=== PATIENT | male | born 1965 | race Caucasian/White ===

== ENCOUNTER 2017-09-03 14:01 | Emergency (ER) | payer MEDICAID, SELFPAY ==
[2017-09-03 14:02] VITALS: BP 152/110; PULSE 86; RESP 16; TEMP 36.6; O2SAT 100; BMI 21.7
--- NOTE | 2017-09-03 14:27 | CT_ITS ---
STUDY: CT CERVICAL SPINE WITHOUT CONTRAST REASON FOR EXAM: Male, 52 years old. Left arm pain. Recent fall. Prior fusion of the lower cervical spine. RADIATION DOSAGE (If Supplied By Facility): CTDIvol = ( 22.40 ) mGy, DLP = ( 541.15 ) mGycm TECHNIQUE: High resolution transaxial imaging was performed without contrast material. Sagittal and coronal images were reconstructed. Individualized dose optimization techniques were used for this CT. COMPARISON: Comparison is made with prior examination dated February 11, 2015. FINDINGS: Normal craniovertebral junction. Normal anterior atlantoaxial articulation. Normal odontoid process. There is straightening of the normal cervical lordosis. Normal vertebral bodies and posterior osseous elements. C2-3: Normal endplates. Normal disc height and morphology. Normal central canal and intervertebral neuroforamina. C3-4: Normal endplates. Normal disc height and morphology. Normal central canal and intervertebral neuroforamina. C4-5: Mild degree of disc space narrowing. Mild degree of central posterior spondylosis causing minimal deformity of the central portion of the thecal sac. C5-6: Status post anterior fusion at the C5-C6 level with screw and plate fixation device. Prosthetic disc is present. C6-7: Status post anterior fusion with screw and plate fixation. Prosthetic disc is seen. C7-T1: Normal endplates. Normal disc height and morphology. Normal central canal and intervertebral neuroforamina. Normal visualized soft tissue structures. CT/Spine Cervical without Contras IMPRESSION: Status post anterior fusion at the C5-C6 and C6-C7 levels. Straightening of the normal cervical lordosis. There has been no change since prior study. Electronically Signed: Pollo Kulkarni MD at 15:16 EST Tel [phone], Service support ,
--- NOTE | 2017-09-03 14:29 | ED.VISSUMM ---
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 Since his injury and neck fusion, he has had chronic neck pain, but never had the left upper extremity discomfort like this. He did not come to the ER for evaluation, but did follow up with his PCP within the last couple weeks, had some C-spine x-rays that showed stable fusion hardware and nothing else. He states his symptoms have continued to worsen over the last 2-3 weeks. Physical Examination: Vital signs are unremarkable, he is holding his head in the hyperflexed position, as he states it is more comfortable. He is able to extend somewhat. He has limited range of motion, turning bilaterally to the 45? altaf is not uncomfortable, but he does so slowly. There is no cervical spine or paraspinal neck tenderness, but he does have mild tenderness in the T1-T2 midline area. There is no step-off or signs of injury there. The rest of the spine is nontender. 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 He has decreased sensation partially throughout the hand but worse in the fingertips, involving all of them. He has a strong radial pulse. He is ambulatory without difficulty, his right upper extremity is normal neurologically and vascularly. HEENT exam is normal otherwise. Test Results: CT cervical spine obtained and shows no acute fractures or hardware abnormality or change compared with prior. Emergency Department Course and Treatment: Reassured that no occult fracture exists. Negative CT of the cervical spine does not rule out the possibility of a acute or subacute disc problem. If that is the case, given the pattern of his discomfort in his left upper extremity, it would have to involve more than one nerve root. He was given an oxycodone which helped his pain. I will give him a short prescription and advised that he follow-up with his PCP. No indication for emergent MRI at this time, which is not available today anyway since the machine is booked. Treatment Plan: As above Disposition: Discharge home Impression: Acute on chronic neck pain Cervical radiculopathy This note was generated with [employer] dictation software. It may contain incorrect words, spelling, and punctuation that were not noted in review of the chart prior to signing ED Disposition - Plan for ED Patient: Disposition: Home or Assisted Living Chief Complaint: Other, Pain/Inj Instructions: ED Cervical Radiculopathy Prescriptions: Oxycodone HCl/Acetaminophen [Percocet 5/325] 1 tab PO Q6H PRN PRN 3 Days #12 tab PRN Reason: Pain Referrals: Daniel Watkins III, MD [Primary Care Provider] - 1 Week
--- NOTE | 2017-09-03 14:32 | ED.DCSUM_ITS ---
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 Since his injury and neck fusion, he has had chronic neck pain, but never had the left upper extremity discomfort like this. He did not come to the ER for evaluation, but did follow up with his PCP within the last couple weeks, had some C-spine x-rays that showed stable fusion hardware and nothing else. He states his symptoms have continued to worsen over the last 2-3 weeks. Physical Examination: Vital signs are unremarkable, he is holding his head in the hyperflexed position, as he states it is more comfortable. He is able to extend somewhat. He has limited range of motion, turning bilaterally to the 45 ? altaf is not uncomfortable, but he does so slowly. There is no cervical spine or paraspinal neck tenderness, but he does have mild tenderness in the T1-T2 midline area. There is no step-off or signs of injury there. The rest of the spine is nontender. 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 He has decreased sensation partially throughout the hand but worse in the fingertips, involving all of them. He has a strong radial pulse. He is ambulatory without difficulty, his right upper extremity is normal neurologically and vascularly. HEENT exam is normal otherwise. Test Results: CT cervical spine obtained and shows no acute fractures or hardware abnormality or change compared with prior. Emergency Department Course and Treatment: Reassured that no occult fracture exists. Negative CT of the cervical spine does not rule out the possibility of a acute or subacute disc problem. If that is the case, given the pattern of his discomfort in his left upper extremity, it would have to involve more than one nerve root. He was given an oxycodone which helped his pain. I will give him a short prescription and advised that he follow-up with his PCP. No indication for emergent MRI at this time, which is not available today anyway since the machine is booked. Treatment Plan: As above Disposition: Discharge home Impression: Acute on chronic neck pain Cervical radiculopathy This note was generated with [employer] dictation software. It may contain incorrect words, spelling, and punctuation that were not noted in review of the chart prior to signing ED Disposition - Plan for ED Patient: Disposition: Home or Assisted Living Chief Complaint: Other, Pain/Inj Instructions: ED Cervical Radiculopathy Prescriptions: Oxycodone HCl/Acetaminophen [Percocet 5/325] 1 tab PO Q6H PRN PRN 3 Days #12 tab PRN Reason: Pain Referrals: Daniel Watkins III, MD [Primary Care Provider] - 1 Week
[2017-09-03] MEDS: oxyCODONE 5 MG Tablet PO (14:34)
[2017-09-03 14:38] VITALS: BP 148/98; PULSE 98; RESP 14; O2SAT 99
[2017-09-03 16:13] VITALS: BP 140/85; PULSE 90; RESP 14; O2SAT 99
== END 2017-09-03 16:13 | disposition home or self-care (01) ==
PROVIDERS: Emergency Provider Emergency Medicine; Family Provider Family Medicine; PCP Family Medicine
DX: M54.12 Radiculopathy, cervical region (principal); M54.2 Cervicalgia; Z72.0 Tobacco use; Z98.1 Arthrodesis status
CPT/HCPCS: 72125; 99283

== ENCOUNTER 2017-09-12 23:35 | Emergency (ER) | payer MEDICAID, SELFPAY ==
[2017-09-12 23:36] VITALS: BP 142/88; PULSE 84; RESP 16; TEMP 37.1; O2SAT 97; BMI 21.4
--- NOTE | 2017-09-13 00:13 | ED.VISSUMM ---
- ER Visit Summary Date of Service: 09/13/17 Chief Complaint: Acute on chronic neck pain History of Present Illness: The patient is a 52 M status post C5C6-7 cervical fusion from trauma in the past. States that he coughed 2 weeks ago has had increasing pain. At times radiates to his left arm. Denies any weakness. No bowel or bladder incontinence. No falls or a month. Denies any fever. She was seen in the ER within the last [address] of his C-spine which showed chronic changes but no acute process. Currently is on [place] for pain. Physical Examination: Middle-aged man lying with his head down on the bed. Complaining of pain. Vital signs are stable afebrile. HEENT exam unremarkable. He has a hard c-collar on. Trachea is midline. He is a well-healed old anterior fusion cervical scar. There is no lymphadenopathy. No meningismus. He does not want to move his neck due to discomfort. There is no redness or warmth. Lungs clear to auscultation bilaterally. Heart regular rate and rhythm no murmur. Abdomen is soft and nontender. Neurologically is awake and alert moving all 4 extremities. 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 He is strong radial pulse. His other extremities are neurovascularly intact. Test Results: None I did review the CT from a week ago. Emergency Department Course and Treatment: Treated with IM Dilaudid here and p.o. Motrin. Discharged home to use his [place]. Treatment Plan: Follow up with his primary care physician for further evaluation. Disposition: Discharge Impression: Acute on chronic neck pain with left arm radiculopathy by history. History of a C6W1-T6 cervical fusion This note was generated with [employer] software. It may contain incorrect words, spelling, and punctuation that were not noted in review of the chart prior to signing ED Disposition - Plan for ED Patient: Chief Complaint: Back Referrals: Daniel Watkins III, MD [Primary Care Provider] -
--- NOTE | 2017-09-13 00:16 | ED.DCSUM_ITS ---
- ER Visit Summary Date of Service: 09/13/17 Chief Complaint: Acute on chronic neck pain History of Present Illness: The patient is a 52 M status post C5C6-7 cervical fusion from trauma in the past. States that he coughed 2 weeks ago has had increasing pain. At times radiates to his left arm. Denies any weakness. No bowel or bladder incontinence. No falls or a month. Denies any fever. She was seen in the ER within the last [address] of his C-spine which showed chronic changes but no acute process. Currently is on [place] for pain. Physical Examination: Middle-aged man lying with his head down on the bed. Complaining of pain. Vital signs are stable afebrile. HEENT exam unremarkable. He has a hard c-collar on. Trachea is midline. He is a well- healed old anterior fusion cervical scar. There is no lymphadenopathy. No meningismus. He does not want to move his neck due to discomfort. There is no redness or warmth. Lungs clear to auscultation bilaterally. Heart regular rate and rhythm no murmur. Abdomen is soft and nontender. Neurologically is awake and alert moving all 4 extremities. 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 He is strong radial pulse. His other extremities are neurovascularly intact. Test Results: None I did review the CT from a week ago. Emergency Department Course and Treatment: Treated with IM Dilaudid here and p.o. Motrin. Discharged home to use his [place]. Treatment Plan: Follow up with his primary care physician for further evaluation. Disposition: Discharge Impression: Acute on chronic neck pain with left arm radiculopathy by history. History of a [id number] cervical fusion This note was generated with [employer] software. It may contain incorrect words, spelling, and punctuation that were not noted in review of the chart prior to signing ED Disposition - Plan for ED Patient: Chief Complaint: Back Referrals: Daniel Watkins III, MD [Primary Care Provider] -
--- NOTE | 2017-09-13 00:17 | DCINST.ED_ITS ---
ED Disposition - Plan for ED Patient: Disposition: Home or Assisted Living Chief Complaint: Back Instructions: ED Neck Back Pain General Referrals: Daniel Watkins III, MD [Primary Care Provider] - As soon as possible Additional Instructions: Follow up with Dr. Watkins. You may need further imaging such as an MRI if this does not improve. [place] and her home [place] for pain.
[2017-09-13] MEDS: HYDROmorphone 1 MG/ML Syringe IM (00:20)
[2017-09-13] MEDS: Ibuprofen 400 MG Tablet 800 MG PO (00:20)
[2017-09-13 00:22] VITALS: RESP 18
--- NOTE | 2017-09-13 00:42 | NURSING ---
EXPLAINED TO THE PT THAT WE DO NOT DO MRIS IN THE ER, THEY HAVE TO BE PREAPPROVED. LET THEM KNOW THAT THEY NEED TO TALK WITH THEIR PCP ABOUT SETTING THAT UP AND MAKING AN ARTI IN THE MORNING. WENT TO D/C AND PAIN IN NO BETTER LET THE DOCTOR KNOW.
[2017-09-13 00:48] VITALS: RESP 16
== END 2017-09-13 00:48 | disposition home or self-care (01) ==
LOC: ED 09-13 00:26
PROVIDERS: Emergency Provider Emergency Medicine; Family Provider Family Medicine; PCP Family Medicine
DX: M54.2 Cervicalgia (principal); G89.29 Other chronic pain; M54.10 Radiculopathy, site unspecified; Z98.1 Arthrodesis status; Z72.0 Tobacco use
CPT/HCPCS: 96372; 99281

== ENCOUNTER → 2018-03-22 15:39 | Outpatient (CLI) | payer MEDICARE, MEDICAID, SELFPAY ==
--- NOTE | 2018-03-22 16:04 | VDLE_ITS ---
Reason For Study: PAIN AND SWELLING RIGHT LEFT GSV is normal. CFV is compressible, spontaneous, phasic, CFV is compressible, spontaneous, phasic, competent, and demonstrates normal competent and demonstrates normal augmentation. augmentation. FV is compressible, spontaneous, phasic, competent and demonstrates normal augmentation. POP V is compressible, spontaneous, phasic, competent and demonstrates normal augmentation. T/P Trunk is compressible. PTV is compressible. RT PerV is compressible. Procedure Exam performed in department. The exam was diagnostic. A preliminary report was called and/or faxed to [facility]. Interpretation Summary Deep veins of the right lower extremity are patent and compressible segmentally. There is no evidence of right lower extremity deep vein thrombosis. Valvular competence appears intact within the proximal deep venous system on the right . The right greater saphenous vein appears patent and compressible segmentally. Ordering Physician: Shante Perdomo Performed By: Isaak Sr RVT
== END ==
PROVIDERS: Family Provider Family Medicine; PCP Family Medicine; Visit Provider Nurse Practitioner Family
DX: M79.604 Pain in right leg (principal); M79.89 Other specified soft tissue disorders
CPT/HCPCS: 93971

== ENCOUNTER 2020-03-03 14:55 | Emergency (ER) | payer MEDICARE, SELFPAY ==
[2020-03-03 14:57] VITALS: BP 142/74; PULSE 70; RESP 18; TEMP 36.4; O2SAT 99; BMI 20.7
[2020-03-03 16:01] VITALS: BP 132/94; PULSE 65; RESP 18; O2SAT 98
--- NOTE | 2020-03-03 16:21 | RAD_ITS ---
STUDY: X-RAY CHEST REASON FOR EXAM: Male, 54 years old. has been having fatigue, sore throat, cough and headaches. was then exposed to a person with COVID on wednesday. TECHNIQUE: Frontal view of the chest COMPARISON: February 11 2015 FINDINGS: . Scattered calcified granulomata. There are minimal ill-defined scattered pulmonary opacities with predominantly bronchovascular appearance. There is no pneumothorax, pulmonary edema, cardiac megaly or pleural effusions. There is cervical ACDF with remainder of the osseous structures normal. RAD/Chest 1 View (Portable) IMPRESSION: Questionable interstitial markings/opacities. Refer to CT for definitive assessment. Electronically Signed: Poncho Estrada, at 17:03 EDT Tel , Service support ,
--- NOTE | 2020-03-03 16:22 | ED.DCSUM_ITS ---
History of Present Illness Chief Complaint: Fatigue Informant: Patient Onset: Days Context: Gradual Onset Timing: Continuous Associated Symptoms: Chills, Cough, Ear pain, Rhinorrhea, Sore throat. Negative for: Fever Chest Pain: None Narrative: Is a 54-year-old male with history of emphysema, heart issues, hyperlipidemia and tobacco use presenting for flulike symptoms. Patient states he was exposed to someone with coronavirus 5 days ago. He started having symptoms 3 days ago. He has runny nose, nasal congestion, ear fullness, sore throat and cough. He also has chills and body aches. Patient denies any fever. 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 He also states he is concerned because he has an immunosuppressed daughter with Crohn's disease at home. She is currently asymptomatic. Patient states he has some very mild shortness of breath but denies any chest pain. He denies any wheezing difficulty breathing. He states is more of an irritation from his throat. He has had a cough is been productive of some red sputum. No other complaints at this time. Is not previously been tested for coronavirus. Past Medical History - Allergies and Home Meds Allergies/Adverse Reactions: Allergies sulfamethoxazole [From Bactrim] Allergy (Verified 03/03/20 14:57) Rash trimethoprim [From Bactrim] Allergy (Verified 03/03/20 14:57) Rash Primary Care Physician: Daniel Watkins III, MD [Primary Care Provider] - Past Medical History: - - Emphysema,'s hypertension, hyperlipidemia, heart issues Lives: With Family Smoking Status: Current every day smoker Review of Systems General: Reports: Chills, Malaise. Denies: Fever, Sweats Eyes: Denies: Visual changes - bilaterally ENT: Reports: Bilateral ear pain, Rhinorrhea, Sore throat Cardiovascular: Denies: Chest pain, Palpitations Respiratory: Reports: Cough, Sputum. Denies: Dyspnea, Dyspnea on exertion Gastrointestinal: Denies: Abdominal pain, Nausea, Vomiting, Diarrhea, Melena, Hematochezia Genitourinary: Denies: Dysuria, Hematuria, Frequency Musculoskeletal: Reports: Myalgias. Denies: Arthralgias, Neck pain Skin: Denies: Rash Neurological: Denies: Headache, Weakness, Numbness Physical Exam Vital Signs/Narrative: Vital Signs Temp Pulse Resp BP Pulse Ox 03/03/20 14:57 97.6 F L 70 18 142/74 H 99 Inital Vital Signs reviewed: Yes General: Well nourished, Well developed Head: Normocephalic, Atraumatic Eyes: Perrl, EOMI ENT: Rhinorrhea, - - Tympanic membranes are clear bilaterally however there is air-fluid levels bilaterally and retractions on the left. Negative for: Purulent Discharge, Sinus tenderness Neck: Supple, Nontender Cardiovascular: Regular rate, Regular rhythm, No murmurs Respiratory: No distress, No Stridor, Rhonchi. Negative for: Wheezing, Diminished, Decreased Air Movement Abdomen: Soft, Nontender, Nondistended, Normal bowel sounds Back: Nontender, Normal Inspection Extremities: Nontender, No edema Skin: Normal color, No rash Neurological: Alert, Oriented x3, Cranial nerves II-XII grossly intact, Normal Strength, Normal Sensation Psychological: Normal affect Diagnostic/Tx/Re-eval Chest X-Ray - ED: 1 View, Read by ED Physician, Read by Radiologist, - - Interstitial changes bilateral Clinical Impression(s) from Imaging Studies Chest X-Ray 03/03/20 16:21 IMPRESSION: Questionable interstitial markings/opacities. Refer to CT for definitive assessment. Electronically Signed: Poncho Estrada, at 17:03 EDT Tel , Service support , - Medical Decision Making Patient is evaluated for flulike symptoms in conjunction with exposure to coronavirus. He is well-appearing but looks like he does not feel good. His breath sounds are slightly rhonchorous but he is in no respiratory distress and has normal vital signs. X-ray shows bilateral interstitial opacities possibly consistent with pneumonia. Given patient clinical picture likely this is a vir al pneumonia however patient be treated empirically for atypicals with a Z-Aaron. Patient not hypoxic and does not have any desaturation with ambulation. He is discharged home with [place] isolation precautions. His COVID test is pending. He is given return precautions including signs of dehydration and worsening shortness of breath. He is in encouraged to abstain from tobacco use. ED Disposition - Plan for ED Patient: Disposition: Home or Assisted Living Diagnosis: Suspected COVID-19 virus infection Instructions: ED PNEUMONITIS Adult Prescriptions: Azithromycin [Zithromax Z-Aaron] 250 mg PO UD #1 box Prescription Printed Referrals: Daniel Watkins III, MD [Primary Care Provider] - Additional Instructions: I suspect you have coronavirus infection causing your symptoms given the current pandemic in your work-up today. Your chest x-ray shows a questionable pneumonia which could be from the viral infection however you will be treated with antibiotics just in case. Please treat yourself as if you do have coronavirus infection until your results come back and quarantine yourself. Return the emergency room with any worsening symptoms especially signs of dehydration or difficulty breathing.
[2020-03-03 17:00] VITALS: O2SAT 100
[2020-03-03 18:05] VITALS: RESP 18
== END 2020-03-03 18:10 | disposition home or self-care (01) ==
PROVIDERS: Emergency Provider Emergency Medicine; PCP Family Medicine
DX: B34.9 Viral infection, unspecified (principal); Z20.828 Contact with and (suspected) exposure to other viral communicable diseases; E78.5 Hyperlipidemia, unspecified; J43.9 Emphysema, unspecified; I10 Essential (primary) hypertension; F17.200 Nicotine dependence, unspecified, uncomplicated
CPT/HCPCS: 71045; 87635; 94799; 99282; U0003

== ENCOUNTER 2020-06-11 12:39 | Emergency (ER) | payer MEDICARE, SELFPAY ==
[2020-06-11 12:40] VITALS: BP 169/120; PULSE 70; RESP 18; TEMP 36.2; BMI 22.1
--- NOTE | 2020-06-11 13:41 | MRI_ITS ---
STUDY: MRI CERVICAL SPINE WITHOUT CONTRAST REASON FOR EXAM: Male, 55 years old. weakness, right arm/ shoulder , back pain, hx prior fusion TECHNIQUE: Standardized fat and water weighted pulse sequences were obtained in the sagittal and axial planes. COMPARISON: CT 09/03/2017 FINDINGS: Normal foramen magnum and brainstem-cervical cord junction. Normal craniovertebral junction. Normal anterior atlantoaxial articulation. Normal odontoid process. There is straightening of the normal cervical lordosis. Normal vertebral bodies and posterior osseous elements. C2-3: Mild left facet hypertrophy produces mild left neural foraminal stenosis. No central spinal stenosis. C3-4: Mild broad disc osteophyte complex and bilateral vertebral hypertrophy produces mild spinal stenosis and mild bilateral neural foraminal stenosis. C4-5: Mild broad disc osteophyte complex and bilateral uncovertebral hypertrophy produces mild spinal stenosis and mild bilateral neural foraminal stenosis. C5-6: Status post anterior cervical discectomy and fusion with anatomic alignment and no spinal stenosis or neural foraminal stenosis. C6-7: Status post anterior cervical discectomy and fusion with anatomic alignment and no spinal stenosis or neural foraminal stenosis. C7-T1: Normal endplates. Normal disc height, signal and morphology. Normal central canal and intervertebral neural foramina. Normal cervical cord. Normal visualized soft tissue structures. MRI/Spine Cervical (Routine) IMPRESSION: Status post anterior cervical discectomy and fusion from C5 through C7 with anatomic alignment. Mild degenerative disc disease at C3/C4 and C4/C5 as described above. Electronically Signed: Naresh De La Rosa MD at 16:42 EST Tel , Service support ,
--- NOTE | 2020-06-11 13:42 | MRI_ITS ---
STUDY: MRI THORACIC SPINE WITHOUT CONTRAST REASON FOR EXAM: Male, 55 years old. right arm pain, n/t , weakness X few weeks with increasing severity. Back pain, prior cervical fusion surgery TECHNIQUE: Standardized fat and water weighted pulse sequences were obtained in the sagittal and axial planes. COMPARISON: None. FINDINGS: Normal kyphosis of the thoracic spine. There is no substantial scoliosis. T1-2, T2-3, T3-4, T4-5, T5-6, T6-7, T7-8, T8-9, T9-10, T10-11, T11-12: At T1/T2, there is a mild bilobed disc protrusion which produces mild spinal stenosis but no neural foraminal stenosis. At T9/T10, there is a small central disc protrusion which produces mild spinal stenosis but no neural foraminal stenosis. Normal visualized thoracic cord. Normal conus medullaris that terminates at the L1.. The soft tissue structures are unremarkable. MRI/Spine Thoracic (Routine) IMPRESSION: Mild degenerative disc disease but no cord compression. Electronically Signed: Naresh De La Rosa MD at 16:16 EST Tel , Service support ,
[2020-06-11] MEDS: morphine 8 MG/ML Syringe IM (16:04)
[2020-06-11 16:07] VITALS: BP 147/121; PULSE 71; RESP 16; O2SAT 100
--- NOTE | 2020-06-11 16:39 | ED.DCSUM_ITS ---
History of Present Illness Chief Complaint: Upper Extremity Injury Narrative: Patient presenting for evaluation secondary to neck pain back pain and some arm weakness. Patient has prior history of a cervical fusion. Patient states that over the course of the last couple of weeks he has been dealing with increased neck and back pain. Patient states that the back pain is in his upper thoracic back at the base of his neck and will radiate over to his shoulder blade. Pain will radiate down his right arm and is associated with a tingling, vxcj-pkl-itjbiey type sensation in his forearm and hand, and weakness in his hand and his arm. Patient denies that he has been having any sort of fevers chills night sweats or unintended weight loss. Patient states that the pain is worse with movements, and when he looks up the pain will shoot down his right arm. Patient has been to urgent care, did receive some x-rays that were found to be unremarkable. Patient reports that he has been taking any [id number] interventions that he can get his hands on the really have not been alleviating his symptoms. View of systems otherwise negative. Past Medical History - Allergies and Home Meds Allergies/Adverse Reactions: Allergies sulfamethoxazole [From Bactrim] Allergy (Verified 06/11/20 13:32) Rash trimethoprim [From Bactrim] Allergy (Verified 06/11/20 13:32) Rash Primary Care Physician: Daniel Watkins III, MD [Primary Care Provider] - Surgical History: - - Prior cervical fusion Smoking Status: Current every day smoker Alcohol: None Drugs: None Review of Systems All systems negative except as indicated General: Denies: Chills, Fever, Sweats Eyes: Denies: Visual changes - bilaterally, Diplopia ENT: Denies: Rhinorrhea, Sore throat Cardiovascular: Denies: Chest pain, Palpitations Respiratory: Denies: Dyspnea, Cough, Dyspnea on exertion Gastrointestinal: Denies: Abdominal pain, Nausea, Vomiting, Diarrhea, Melena, He matochezia Genitourinary: Denies: Dysuria, Hematuria, Frequency Musculoskeletal: Reports: Neck pain, Back pain Skin: Denies: Rash, Wounds Neurological: Reports: Weakness, Parasthesia Physical Exam Vital Signs/Narrative: Vital Signs Temp Pulse Resp BP Pulse Ox 06/11/20 16:07 71 16 147/121 H 100 06/11/20 12:40 97.2 F L 70 18 169/120 H Inital Vital Signs reviewed: Yes General: - - Thin male who appears his stated age, visibly in pain but otherwise not physiologic distress Head: Normocephalic, Atraumatic Eyes: Perrl, EOMI ENT: Moist mucous membranes, No rhinorrhea Neck: Supple, - - Patient's neck and upper thoracic back are where he complains of pain with her nontender no evidence of step-offs. Limited range of motion secondary to pain. Cardiovascular: Regular rate, Regular rhythm, No murmurs, - - 2+ radial pulses that are bilaterally symmetric, normal capillary refill in the upper extremities bilaterally symmetric Respiratory: No distress, CTA bilaterally, Chest nontender Back: Normal Inspection Extremeties: Nontender, No edema Skin: Normal color, No rash Neuro: - - Patient complains of dysesthesia of the entirety of his forearm and hand from approximately the elbow all the way down, this does not distribute in a dermatomal pattern. 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 Normal brachioradialis biceps and tric Diagnostic/Tx/Re-eval Clinical Impression(s) from Imaging Studies Cervical Spine MRI 06/11/20 13:41 IMPRESSION: Status post anterior cervical discectomy and fusion from C5 through C7 with anatomic alignment. Mild degenerative disc disease at C3/C4 and C4/C5 as described above. Electronically Signed: Naresh De La Rosa MD at 16:42 EST Tel , Service support , Thoracic Spine MRI 06/11/20 13:42 IMPRESSION: Mild degenerative disc disease but no cord compression. Electronically Signed: Naresh De La Rosa MD at 16:16 EST Tel , Service support , - Medical Decision Making Patient presented with neck pain back pain and weakness. Patient does have objective weakness, and is a thin appearing male that is an every day smoker with both neck and back pain. There is at least some concern for the possibility of malignancy causing his radicular symptoms. MRI of the C-spine and T-spine were ordered. Per radiology these show mild disease with no evidence of cord compression, no evidence of malignancy. I did perform a chest x-ray to rule out the possibility of large intrathoracic lesion, which by my personal interpretation is negative. Patient did have some improvement with treatment of his pain in the emergency department with morphine. Patient at this point has radicular symptoms. He will be sent home with a Medrol pack, Flexeril, and a short course of Roslyn for treatment of pain. Patient will be given a referral to spine surgery. Patient was discharged in stable condition. ED Disposition - Plan for ED Patient: Disposition: Home or Assisted Living Diagnosis: Cervical radiculopathy Instructions: ED Radiculopathy, Cervical Prescriptions: cycloBENZAPRine HCl [Flexeril] 10 mg PO TID PRN #20 tab PRN Reason: Muscle Spasm Prescription Printed MethylPREDNISolone DosePak [Medrol DosePak] 4 mg PO UD #1 box Prescription Printed Hydrocodone Bitart/Apap 5-325 [Roslyn 5MG-325MG] 1 tab PO Q6H PRN PRN 3 Days #12 tab PRN Reason: Pain Prescription Printed Referrals: Rodolfo Mckeon DO [STAFF PHYSICIAN] - As soon as possible
--- NOTE | 2020-06-11 16:56 | RAD_ITS ---
STUDY: X-RAY CHEST REASON FOR EXAM: Male, 55 years old. right arm, shoulder and back pain x 1 week, numbness and tingling, pain worse with movement TECHNIQUE: Single AP portable view of the chest. COMPARISON: 03/03/2020 FINDINGS: The lungs are clear and expanded. There is no demonstrated pleural abnormality. Normal size heart. Normal mediastinum and bryson. Normal visualized pulmonary arteries. Normal visualized aortic arch and descending thoracic aorta. Normal visualized thoracic spine. Normal visualized ribs, clavicles, and shoulders. There is no demonstrated abnormality of the visualized soft tissue structures of the upper abdomen. RAD/Chest 1 View (Portable) IMPRESSION: Normal x-ray examination of the chest. Electronically Signed: Naresh De La Rosa MD at 17:21 EST Tel , Service support ,
[2020-06-11 17:18] VITALS: BP 148/90; PULSE 70; RESP 16; O2SAT 98
== END 2020-06-11 17:19 | disposition home or self-care (01) ==
PROVIDERS: Emergency Provider Emergency Medicine; PCP Family Medicine
DX: M54.12 Radiculopathy, cervical region (principal); F17.200 Nicotine dependence, unspecified, uncomplicated
CPT/HCPCS: 71045; 72141; 72146; 96372; 99282

== ENCOUNTER 2021-07-06 19:57 | Emergency (ER) | payer MEDICARE, MEDICAID, SELFPAY ==
[2021-07-06 19:58] VITALS: BP 143/97; PULSE 65; RESP 18; TEMP 36.2; O2SAT 99; BMI 22.1
--- NOTE | 2021-07-06 23:30 | EX.ED.DYSGE1 ---
HPI History of Present Illness Chief Complaint: Cough Informant: patient Narrative Narrative: Patient is here for Covid test. He states he has been coughing for 3 or 4 days but he has no other symptoms whatsoever. No sputum production. No dyspnea. No loss of taste or smell. He took a home test that showed a faint second line. But he wants another test. He has high blood pressure on lisinopril but no other medical problems. Allergy to sulfa. No recent surgeries. He is a smoker. No vaccinations. PFSH PFSH Home Medications cyclobenzaprine 10 mg PO TID PRN #20 tab 06/11/20 [Rx Last Taken Unknown] methylprednisolone 4 mg PO UD #1 box 06/11/20 [Rx Last Taken Unknown] Allergy/AdvReac Type Severity Reaction Status Date / Time sulfamethoxazole Allergy Rash Verified 07/06/21 19:59 [From Bactrim] trimethoprim [From Bactrim] Allergy Rash Verified 07/06/21 19:59 Social History Smoking Status: Current every day smoker ROS ROS ED Constitutional Constitutional ED: Denies chills or fever(s) Eyes Eyes: Denies blurry vision ENT ENT ED: Denies rhinorrhea or sore throat Cardiovascular Cardiovascular: Denies chest pain or palpitations Respiratory/Chest Respiratory/Chest: Reports cough; Denies dyspnea or sputum Gastrointestinal Gastrointestinal: Denies nausea or vomiting Genitourinary Genitourinary ED: Denies dysuria Musculoskeletal Musculoskeletal: Denies myalgias Integumentary Denies rash Neurologic Neurologic: Denies headache(s) Psychiatric Psychiatric: Denies anxiety or depression Endocrine Endocrinology: Denies polydipsia or polyuria Allergic/Immunologic Allergic/Immunologic ED: Denies mouth swelling or urticaria EXAM Physical Exam Const Vital Signs: 07/06/21 19:58 Temperature 97.1 F L Temperature Source Temporal Pulse Rate 65 Respiratory Rate 18 Blood Pressure 143/97 H Blood Pressure Mean 112 Pulse Ox 99 Oxygen Delivery Method Room Air Positive well nourished and well developed General Appearance ED: well developed and NAD; Negative for cyanotic or diaphoretic HEENT Negative for trauma Eyes PERRL Neck no lymphadenopathy and no JVD Resp normal respiratory effort and clear to auscultation bilaterally Effort and Inspection: Negative for pain with movement Auscultation: Negative for rales, rhonchi or wheezes Cardio regular rate and regular rhythm GI normal to inspection, nondistended, normoactive bowel sounds and non-tender Palpation: soft Back/Spine no CVA tenderness Neuro Sensorium / Orientation: alert Psych mental status grossly normal Skin no rashes or lesions noted MDM MDM MDM Narrative Medical decision making narrative: I will send off a PCR test. No therapy is given. I want to do a chest x-ray as he is not hypoxic or short of breath. We can get him home pending results. Discharge Plan Triage Chief Complaint: Cough ED Provider: Jd Miramontes Dx/Rx/DC Orders Clinical Impression: Close exposure to 2019-nCoV, Nonproductive cough Prescriptions: No Action cyclobenzaprine 10 MG tablet 10 mg PO TID PRN (Reason: Muscle Spasm) Qty: 20 RF: 0 methylprednisolone 4 MG tablets,dose pack 4 mg PO UD Qty: 1 RF: 0 Primary Care Provider: Sergio Rodriguez NP Referrals: Sergio Rodriguez NP, [employer] [Primary Care Provider] - 1 Week if not improving Disposition Disposition: Home, Self Care
== END 2021-07-07 00:15 | disposition home or self-care (01) ==
PROVIDERS: Emergency Provider Emergency Medicine; PCP Nurse Practitioner Family; Visit Provider Emergency Medicine
DX: R05.9 Cough, unspecified (principal); Z20.822 Contact with and (suspected) exposure to COVID-19; F17.200 Nicotine dependence, unspecified, uncomplicated; I10 Essential (primary) hypertension
CPT/HCPCS: 87635; 99282; U0003; U0005

== ENCOUNTER → 2022-07-22 | Outpatient (CLI) | payer MEDICARE, MEDICAID, SELFPAY ==
--- NOTE | 2022-07-22 14:40 | RAD_ITS ---
STUDY: X-RAY - LUMBAR SPINE REASON FOR EXAM: Male, 57 years old. BACK PAIN TECHNIQUE: XR Spine Lumbar 2 or 3 Views COMPARISON: None FINDINGS: Normal lumbar lordosis. There is no substantial scoliosis. There is a normal alignment of the vertebrae. Normal vertebral bodies and endplates. Normal disc space heights. Disc spacers in place. Spinal fusion hardware noted. There are atherosclerotic vascular calcifications. The soft tissue structures are unremarkable. RAD/Lumbar Spine 2 or 3 Views IMPRESSION: There are no acute findings. Electronically Signed: Be Parra MD at 16:55 EST Reading Location ID and State: [facility] / [place] , Service support ,
[2022-07-22 16:11] LABS: Amphetamine Urine VISTA NEGATIVE (<1000 ng/mL); Barbiturate Urine VISTA NEGATIVE (< 200 ng/mL); Benzodiazepine Urine VISTA NEGATIVE (< 200 ng/mL); Cocaine Urine VISTA NEGATIVE (< 300 ng/mL); Ecstacy Urine VISTA NEGATIVE (< 500 ng/mL); Methadone Urine VISTA NEGATIVE (< 300 ng/mL); PCP Urine VISTA NEGATIVE (< 25 ng/mL); THC Urine VISTA NEGATIVE (< 50 ng/mL); Vista UDS pH Range 5
== END | disposition home or self-care (01) ==
LOC: LAB 14:25 → RAD 14:35
PROVIDERS: PCP Family Medicine; Visit Provider Anesthesiology Pain Medicine
DX: F11.20 Opioid dependence, uncomplicated (principal); M96.1 Postlaminectomy syndrome, not elsewhere classified
CPT/HCPCS: 72100; 80307

== ENCOUNTER → 2023-05-10 | Outpatient (CLI) | payer MEDICARE, MEDICAID, SELFPAY ==
[2023-05-10 15:02] LABS: Amphetamine Urine VISTA NEGATIVE (<1000 ng/mL); Barbiturate Urine VISTA NEGATIVE (< 200 ng/mL); Benzodiazepine Urine VISTA NEGATIVE (< 200 ng/mL); Cocaine Urine VISTA NEGATIVE (< 300 ng/mL); Ecstacy Urine VISTA NEGATIVE (< 500 ng/mL); Methadone Urine VISTA NEGATIVE (< 300 ng/mL); PCP Urine VISTA NEGATIVE (< 25 ng/mL); THC Urine VISTA NEGATIVE (< 50 ng/mL); Vista UDS pH Range 5
== END | disposition home or self-care (01) ==
LOC: LAB 13:54
PROVIDERS: PCP Family Medicine; Referring Provider Anesthesiology Pain Medicine; Visit Provider Anesthesiology Pain Medicine
DX: F11.20 Opioid dependence, uncomplicated (principal)
CPT/HCPCS: 80307